=== PATIENT | female | born 1980 ===

== ENCOUNTER 2016-09-05 02:16 | Observation (INO) ==
[2016-09-05] MEDS ORDERED: ONDANSETRON 4 MG/2 ML VIAL IV STA ×2 (02:44→04:30)
[2016-09-05] MEDS ORDERED: HYDROmorphone 2 MG/1 ML VIAL IV STA ×2 (02:44→04:30)
[2016-09-05] MEDS ORDERED: ONDANSETRON 4 MG/2 ML VIAL ONE ×2 (02:52→04:33)
[2016-09-05] MEDS ORDERED: HYDROmorphone 2 MG/1 ML VIAL ONE ×2 (02:53→04:33)
--- NOTE | 2016-09-05 02:57 | Emergency Department Note ---
I, Antonina Andre, am scribing for, and in the presence of, Soraya Valero DO 02:54. I, Soraya Valero DO, personally performed the services described in this documentation, ascribed by Antonina Andre in my presence, and it is both accurate and complete . Arrival - Arrival Chief Complaint: Abdominal / Flank Pain Stated Complaint: hurting on R side gallbladder removed yesterday ED Nursing Triage Note: Patient to triage with c/o right ABD and right flank pain going into back since 1900 last night. Patient had gallbladder removed by Dr Rg and does not F/U until 09/21/16. Patient thought the pain was "gas" at first but the pain has gotten worse. Mode of Arrival: Ambulatory Limitations: No Limitations Source: Patient Time Seen by Provider: 09/05/16 02:32 - History of Present Illness HPI Narrative: Pt is a 35 y/o female who came to ED with c/o right abdomen and flank pain radiating into back that started at 1900 last night. Pt had cholecystectomy on 09/03/[address] Rg, but F/U is not until 09/21/16. Pt thought the pain was "gas" at first with excessive belching, but the pain has worsened. Pt notes taking the prescriptions for pain, but had no relief. Pt has associated sxs nausea, cold sweats, both en route to ED. Pt is a smoker. Onset (ago): hour(s) Consistency: constant Severity: mild, moderate Severity scale (1-10): 4 Quality: aching Date of Last Menstrual Period: "last week" Allergies/Adverse Reactions: Allergies Allergy/AdvReac Type Severity Reaction Status Date / Time No Known Allergies Allergy Verified 09/05/16 02:27 Home Medications: Home Medications Medication Instructions Recorded Confirmed Type HYDROcodone/ACETAMIN 7.5-325 1 tablet PO Q6HR PRN 09/05/16 09/05/16 History [[place] 7.5-325] Review of System - Review of System 12 point system: reviewed and no additional remarkable complaints except as stated - Review of System Constitutional: Present: chills, diaphoresis. Absent: fever Respiratory: Absent: respiratory distress Cardiovascular: Absent: chest pain Gastrointestinal: Present: abdominal pain, nausea Musculoskeletal: Present: lower back pain (right flank pain). Absent: arm pain , leg pain, neck pain Skin: Absent: rash Neurological: Absent: headache Medical,Surgical,& Family Hx - Surgical History Abdominal Surgeries: Surgical HX of: Cholecystectomy - Family History Family History: noncontributory - Social History Smoking Status: Current every day smoker Frequency of Alcohol Use: Rarely Type of Drug Use: None Marital Status: Single Lives With:: Alone Functional capacity: independent ambulation Exam Vital Signs: Vital Signs Temperature 98.8 F 09/05/16 02:22 Pulse Rate 75 09/05/16 02:22 Respiratory Rate 18 09/05/16 02:22 Blood Pressure 108/73 09/05/16 02:22 O2 Sat by Pulse Oximetry 96 09/05/16 02:22 - General General appearance: alert, in no apparent distress - Head Head exam: Present: atraumatic, normocephalic - Eye Eye exam: Present: PERRL, EOMI - ENT ENT exam: Present: mucous membranes moist. Absent: mucous membranes dry - Neck Neck exam: Present: full ROM. Absent: tenderness - Chest Chest inspection: Present: symmetric chest wall rise. Absent: tenderness - Respiratory Respiratory exam: Present: normal lung sounds bilaterally. Absent: respiratory distress - Cardiovascular Cardiovascular exam: Present: regular rate, normal rhythm, normal heart sounds - Abdominal Exam Abdominal exam: Present: soft, tenderness (mildly tender to touch ), normal bowel sounds, other (3 well healing surgical sites consistent with previous surgery). Absent: distention, guarding, rebound - Extremities Exam Extremities exam: Present: full ROM. Absent: tenderness, pedal edema - Neurological Exam Neurological exam: Present: alert, oriented X3, CN II-XII intact. Absent: motor sensory deficit - Psychiatric Psychiatric exam: Present: normal affect, normal mood - Skin Skin exam: Present: warm, dry Course Course Narrative: Spoke with Dr Peace who wishes for pt to be left in the ER and he will come see her. Results - Labs CBC & BMP: 09/05/16 02:53 09/05/16 02:53 Lab Results: I have reviewed the patients labs Labs: Laboratory Tests 09/05/16 09/05/16 09/05/16 02:53 02:53 02:53 WBC 13.2 H RBC 4.33 Hgb 13.3 Hct 39.2 Plt Count 193 Neut % (Auto) 76.4 H Lymph % (Auto) 15.7 L Neut # (Auto) 10.1 [place] # (Auto) 0.9 H Potassium 3.2 L BUN 6 L Urine Color Straw Urine Appearance Clear Urine pH 6.0 Ur Specific [place] 1.002 Urine Blood Negative Urine Urobilinogen < 2.0 H Urine RBC <1 Urine WBC 1 Ur Squamous Epith Cells Occasional Urine Bacteria Moderate Urine Mucus Occasional Disposition Clinical Impression: Post-op pain Case discussed with: patient Disposition: Still a Patient Condition: Stable Time of Disposition: 05:25
[2016-09-05 03:11] LABS: Basophils % 0.2 % (0.0-0.8); Eosinophils # 0.1 10*3/uL (0.0-0.87); Eosinophils % 0.4 % (0.00-10.9); Hematocrit 39.2 VOL% (35.7-47.0); Hemoglobin 13.3 GM/DL (12.0-16.0); Immature Granulocytes % 0.5 %; Immature Granulocytes Absolute 0.06 #; Lymphocytes # 2.1 10*3/uL (1.4-4.0); Lymphocytes % 15.7 % (21.3-54.2); Mean Corpuscular HGB Conc 33.9 GM/DL (32-36); Mean Corpuscular Hemoglobin 31 PG (27-34); Mean Corpuscular Volume 90.5 FL (87-102); Mean Platelet Volume 10.9 FL (9.6-12.0); Monocytes # 0.9 10*3/uL (0.11-0.8); Monocytes % 6.8 % (1.7-12.7); Neutrophils # 10.1 10*3/uL (1.4-7.4); Neutrophils % 76.4 % (38.7-73.9); Platelet Count 193 T/CUMM (130-400); Red Blood Count 4.33 MC/CUMM (3.8-5.5); Red Cell Distribution Width 12.7 % (9.3-17.3); White Blood Count 13.2 T/CUMM (4-12)
[2016-09-05 03:22] LABS: Apearance,Urine CLEAR (Clear); Bacteria,Urine Moderate /HPF (Few); Bilirubin,Urine Negative (Negative); Blood, Urine Negative (Negative); Glucose,Urine (UA) Negative (Negative); Ketones,Urine Negative (Negative); Mucus,Urine Occasional /LPF (Occasional); Nitrite,Urine Negative (Negative); Protein,Urine Negative; RBC,Urine <1 /HPF (0-4); Squamous Epithelial Cell,Urine Occasional /HPF (0-10); Urine Color Straw (Yellow); Urine Specific Gravity 1.002 (1.001-1.035); Urine Urobilinogen < 2.0 EU/DL (0.2-1.0); WBC,Urine 1 /HPF (0-6)
[2016-09-05 03:30] LABS: Albumin 3.8 G/DL (3.4-5.0); Bilirubin,Total 0.4 MG/DL (0.2-1.0); Calcium 9.2 MG/DL (8.5-10.1); Potassium 3.2 MMOL/L (3.5-5.1); Total Protein 6.6 G/DL (6.4-8.3)
[2016-09-05] MEDS ORDERED: oxyCODONE/ACETAMINOPHEN 5-325 MG TABLET PO PRN (06:13)
[2016-09-05] MEDS ORDERED: HYDROmorphone 2 MG/1 ML VIAL IV PRN (06:13)
[2016-09-05] MEDS ORDERED: ONDANSETRON 4 MG/2 ML VIAL IV PRN (06:13)
[2016-09-05] MEDS ORDERED: ACETAMINOPHEN 325 MG TABLET PO PRN (06:13)
[2016-09-05] MEDS ORDERED: ALUMINUM/MAGNES/SIMETH MAX STR 30 ML UDCUP PO PRN (06:13)
--- NOTE | 2016-09-05 06:25 | General Surg History&Physical ---
Assessment and Plan (1) Post-op pain Status: Acute Assessment and plan: Impression: Postsurgical pain right upper quadrant with nausea Status post laparoscopic cholecystectomy Constipation Plan: IV fluids IV antibiotics and pain control. Current Visit: Yes History of Present Illness Chief complaint: Abdominal pain with nausea History of present illness: Ms. Wilkinson is a 35 year old female white who on the underwent a laparoscopic cholecystectomy at the surgery center and was sent home same day. Apparently she did well the but yesterday began to have some discomfort primary right upper quadrant area. She denied any increased activity associated with that at this time. This got worse with some onset of nausea and she came to emergency room. CT scan was performed that suggested that she get some constipation little fluid in the stomach at this time and some changes under the liver suggestive of the surgery but no sign of any abscess formation. Because of her discomfort and tenderness and elevated white count will go ahead and admit her for observation see if we can get her feeling better at this time and see if we can improve her symptoms and get her bowels functioning. Home Medications Medication Instructions Recorded Confirmed Type HYDROcodone/ACETAMIN 7.5-325 1 tablet PO Q6HR PRN 09/05/16 09/05/16 History [[place] 7.5-325] Allergies Allergy/AdvReac Type Severity Reaction Status Date / Time No Known Allergies Allergy Verified 09/05/16 02:27 Medical,Surgical,& Family Hx - Surgical History Abdominal Surgeries: Surgical HX of: Cholecystectomy - Social History Smoking Status: Current every day smoker Frequency of Alcohol Use: Rarely Type of Drug Use: None Functional capacity: independent ambulation Exam - Constitutional Vitals: Period Temp Pulse Resp BP Sys/Vicente Pulse Ox Last 24 Hr 98.8 F-98.8 F 75-90 18-20 98-126/62-73 96-100 General appearance: mild distress - Head Head exam: Present: normal inspection - ENT ENT exam: Present: normal exam - Neck Neck exam: Present: normal inspection - Respiratory Respiratory exam: Present: clear to auscultation bilaterally, rales - Cardiovascular Cardiovascular exam: Present: RRR - GI/Abdominal GI/Abdominal exam: Present: guarding (Right upper quadrant area), hypoactive bowel sounds, tenderness (About the right upper quadrant), soft. Absent: distended - Extremities Exam Extremities exam: Present: normal inspection - Back Exam Back exam: Present: normal inspection - Neurological Exam Neurological exam: Present: alert, oriented X3, CN II-XII intact - Skin Skin exam: Present: normal color, warm, dry 12 point system: reviewed and no additional remarkable complaints except as stated Quality Measures - VTE Contraindication to Pharmacological VTE Prophylaxis: Clinical assessment deems Pt at low risk, no prophalaxis needed Results - Labs CBC & BMP: 09/05/16 02:53 09/05/16 02:53 Lab Results: I have reviewed the past 24 hour labs - Diagnostic Findings Procedure: CT Abdomen and Pelvis: report reviewed by me ([place] post surgical changes of the liver bed)
[2016-09-05] MEDS ORDERED: POTASSIUM CHLORIDE INJ 40 MEQ in DEXTROSE 5% NACL 0.45% 1,000 ML IV SCH (07:30)
[2016-09-05] MEDS ORDERED: BISACODYL 10 MG SUPP RECTAL ONE (08:00)
[2016-09-05] MEDS: KETOROLAC 15 MG/1 ML VIAL IV SCH ×2 (08:58→14:19)
[2016-09-05] MEDS ORDERED: PANTOPRAZOLE 40 MG TABLET PO SCH (09:00)
[2016-09-05] MEDS ORDERED: DOCUSATE SODIUM 100 MG CAPSULE PO SCH (09:00)
[2016-09-05] MEDS ORDERED: DEXT 5% NACL 0.45% KCL 40 MEQ 40 MEQ/1,000 ML BAG IV SCH (10:00)
--- NOTE | 2016-09-05 10:49 | CT Report ---
History: Right upper quadrant abdominal pain. Leukocytosis Date: 09/05/2016 Study: CT abdomen and pelvis with IV contrast Comparison exam: July 17, [address] abdomen and pelvis The study was also reviewed by Shane. Technique: Spiral CT sections were obtained from the lung bases to the pubic symphysis following 80 mL Omnipaque [address] exam was performed using one or more of the following dose reduction techniques: Automated exposure control, adjustment of the mA and/or kV according to patient size, or use of iterative reconstruction technique. CT abdomen: There is some mild dependent atelectasis in the lower lobes. There is no pleural or pericardial effusion. There is a 2 mm air bubble under the right hemidiaphragm which is not unexpected given the recent cholecystectomy on September 02, 2016. The liver, spleen, pancreas, bile ducts, and adrenal glands are normal. There is a 7 mm simple cyst in the upper pole right kidney; the kidneys are otherwise normal. There is bilateral renal excretion without hydronephrosis. There is no aortic aneurysm. There is no rachna bowel obstruction or evidence of appendicitis. There is no evidence to suggest abscess formation. Mild diffuse prominence of the wall of the descending colon may be related to lack of colonic distention. There is no lymphadenopathy. CT pelvis: There is mild free fluid in the pelvis which may be physiologic or related to the recent surgery. There is a 16 mm rounded low-density simple cyst in the left ovary. Otherwise, there is no pelvic abscess or pelvic mass. Impression: Expected postsurgical changes from the recent cholecystectomy. No abscess. Mild free fluid in the pelvis which may be physiologic. 16 mm left ovarian cyst. 7 mm simple cyst right kidney. PROCEDURE INTERPRETED AT [facility] DEPARTMENT OF RADIOLOGY Final Report Signed by: Dr. Marybeth Martins
[2016-09-05 12:20] VITALS: BP 99/65
--- NOTE | 2016-09-05 14:32 | Discharge Summary ---
Hospital Course - Hospital Course Hospital Course: This patient was readmitted to the hospital for severe abdominal pain after cholecystectomy. Her lab work revealed a mild leukocytosis and some hypokalemia and her CT scan was negative for any complications. She received a dose of narcotics in the ER and some Toradol IV on the floor but she felt much better by the time I saw her and was tolerating her diet with no nausea or vomiting. Overall this sounds like a severe cramping type of gas pain that she had and possibly some constipation on top of it. She received instructions to supplement with potassium rich foods for the next couple days and was also given a prescription for simethicone and Zofran ODT. She already has prescription for narcotic pain medicine. No antibiotics are needed. I believe her white blood cell count is related to her recent surgery since she is afebrile and has no infectious signs or symptoms. Discharge Plan - Discharge Data Disposition: Disch To Home/Self Care Condition at Discharge: Stable Discharge Diet: advance to your usual diet Activity: no lifting Hygiene: may shower Weight Bearing at Discharge: weight bear as tolerated Driving: other (Do not drive or operate heavy machinery for at least 24 hours and after you are off of narcotic pain medications.) Contact your physician if you experience:: fever over 101, Difficulty voiding, Redness or swelling, Nausea/Vomiting, Shortness of breath, Bleeding, pain uncontrolled by pain medications - Discharge Medications New Ondansetron Odt Tab [Zofran Odt] 4 mg PO Q4H PRN #10 tablet PRN Reason: Nausea Simethicone Chew Tab [Mylanta Gas Max Str] 125 mg PO QID PRN #15 tablet PRN Reason: Pain Continue HYDROcodone/ACETAMIN 7.5-325 [[place] 7.5-325] 1 tablet PO Q6HR PRN PRN Reason: Pain - Follow Up or Referral - Forms/Instructions Exam - Constitutional Vitals: Period Temp Pulse Resp BP Sys/[place] Pulse Ox Last 24 Hr 98.6 F-98.8 F 67-90 16-20 97-126/57-73 94-100 General appearance: normal weight, no acute distress - Head Head exam: Present: normal inspection, normocephalic - Eye Eye exam: Present: EOMI Pupils: Present: CRISTAL - ENT ENT exam: Present: normal exam - Neck Neck exam: Present: normal inspection - Respiratory Respiratory exam: Present: clear to auscultation bilaterally. Absent: accessory muscle use, chest wall tenderness - Cardiovascular Cardiovascular exam: Present: regular rate and rhythm. Absent: systolic murmur , tachycardia - GI/Abdominal GI/Abdominal exam: Present: tenderness (Expected postoperative tenderness.), soft. Absent: rebound - Extremities Exam Extremities exam: Present: normal inspection, normal capillary refill - Back Exam Back exam: Present: normal inspection - Neurological Exam Neurological exam: Present: alert, oriented X3 - Psychiatric Psychiatric exam: Present: normal affect, normal mood - Skin Skin exam: Present: normal color, warm Discharge Results Procedures and tests throughout hospitalization: Pending Orders 09/06/16 04:00 Basic Metabolic Panel IN AM Comp Blood Count Auto Diff IN AM Labs on day of discharge: Labs from last 24 hours 09/05/16 09/05/16 09/05/16 02:53 02:53 02:53 WBC 13.2 H RBC 4.33 Hgb 13.3 Hct 39.2 MCV 90.5 MCH 31 MCHC 33.9 RDW 12.7 Plt Count 193 MPV 10.9 Neut % (Auto) 76.4 H Lymph % (Auto) 15.7 L [place] % (Auto) 6.8 Eos % (Auto) 0.4 Baso % (Auto) 0.2 Neut # (Auto) 10.1 H Lymph # (Auto) 2.1 [place] # (Auto) 0.9 H Eos # (Auto) 0.1 Baso # (Auto) 0.0 Immature Gran % 0.5 Nucleated RBC % 0.0 Immature Gran # 0.06 Nucleated RBCs # 0.00 Sodium 143 Potassium 3.2 L Chloride 105 Carbon Dioxide 31 Anion Gap 10.2 BUN 6 L Creatinine 0.70 GFR Calculation 93 BUN/Creatinine Ratio 8.00 Glucose 101 Calculated Osmolality 282.0 Calcium 9.2 Total Bilirubin 0.40 AST 18 ALT 28 Alkaline Phosphatase 56 Total Protein 6.6 Albumin 3.8 Globulin 2.8 Albumin/Globulin Ratio 1.3 Urine Color Straw Urine Appearance Clear Urine pH 6.0 Ur Specific [place] 1.002 Urine Protein Negative Urine Glucose (UA) Negative Urine Ketones Negative Urine Blood Negative Urine Nitrate Negative Urine Bilirubin Negative Urine Urobilinogen < 2.0 H Urine Leukocytes Negative Urine RBC <1 Urine WBC 1 Ur Squamous Epith Cells Occasional Urine Bacteria Moderate Urine Mucus Occasional Ur Culture Indicated? Not indicated - Imaging and Cardiology Procedure: CT Abdomen and Pelvis: image reviewed by me, report reviewed by me ( Normal postoperative CT) DS: Provider Date of admission: 09/05/16 06:13 Primary care physician: Balaji Hartman DO Attending physician on admission: Gregorio Peace MD Discharging clinician: Gentry Rg MD Expected date of discharge: 09/05/16
== END 2016-09-05 15:29 | disposition home or self-care (01) ==
LOC: N.ED 02:16 → N.EDINP 02:16 → N.3E 06:50
PROVIDERS: ADMIT Specialist; ATTEND Specialist